=== PATIENT | female | born 1950 | race Caucasian/White ===

== ENCOUNTER 2017-02-26 14:59 | Outpatient (CLI) | payer MEDICARE | END 2017-02-26 15:00 | disposition home or self-care (01) | LOC: LABBT 14:59 | PROVIDERS: ATTEND Orthopaedic Surgery Sports Medicine | DX: R91.8 Other nonspecific abnormal finding of lung field (principal) ==

== ENCOUNTER 2017-03-01 07:43 | Day surgery (SDC) | payer MEDICARE ==
[2017-02-26 15:14] VITALS: BMI 18.0
[~2017-03-01 07:43] MED LIST: Lidocaine 1% (PF) 30 ML VIAL ONE
[2017-03-01] MEDS ORDERED: Fentanyl 100 MCG/2 ML VIAL ONE (09:31)
[2017-03-01] MEDS ORDERED: Midazolam HCl 2 mg/2 ml Vial ONE (09:31)
[2017-03-01 10:36] LABS: BF Reference Range Comment Note:
[2017-03-01 10:56] LABS: BF Color Colorless
[2017-03-01 10:57] LABS: BF WBC/Nonhematics Ct. - Manua 295 /cumm
[2017-03-01 11:52] LABS: Number Cells Counted-Fluids 100
--- NOTE | 2017-03-01 15:05 | OP ---
DATE OF SERVICE: 03/01/2017 SERVICE: Pulmonary Medicine. PROCEDURE: Fiberoptic bronchoscopy with: 1. Visual airway inspection. 2. Endobronchial brush of the right lower lobe. 3. Bronchoalveolar lavage at the right lower lobe. 4. Transbronchial biopsies of the right lower lobe. PREPROCEDURE DIAGNOSIS: Pulmonary infiltrate. POSTPROCEDURE DIAGNOSIS: Pulmonary infiltrate. PROCEDURE COOLER SERVICER: Kayode Robles M.D. MEDICATIONS: 1. Versed 3 mg IV push. 2. Fentanyl 75 mcg IV push. 3. Topical lidocaine 1% without epinephrine, total quantity 16 mL PREANESTHESIA ASSESSMENT: H and P had been performed. The patient's medications and allergies were reviewed. Informed consent was obtained after discussing risks, benefits, and rationale for perfo rming procedure as well as alternative options. DESCRIPTION OF PROCEDURE: A timeout was performed identifying the correct procedure and the patient with name and date of . Topical anesthesia with plot of the nose and posterior oropharynx. A diagnostic fiberoptic bronchoscope was introduced through the right naris. The vocal cords were vi sualized and 1% lidocaine was topically sprayed on the cords. The bronchoscope was advanced in the trachea where additional aliquots of lidocaine were applied. A tracheobronchial tree inspection was carried out with clear identification of the right upper lobe, right middle lobe, right lower lobe, left upper lobe, lingula, and left lower lobe. Anatomy was normal to the segmental level. Broncho alveolar lavage was obtained from the right lower lobe. Endobronchial brushings and transbronchial biopsies were obtained from the right lower lobe under fluoroscopic guidance. Hemostasis was verifi ed and the bronchoscope was subsequently removed from the patient. Post-procedure fluoroscopy did n ot demonstrate a pneumothorax. FINDINGS: 1. Vocal cords were normal in motility and appearance. 2. No endobronchial disease was identified. 3. Secretions were minimal, but thick and white. SPECIMENS OBTAINED: 1. BAL for cytology, cultures, and cell count. 2. Transbronchial biopsies for pathology. 3. Brushing for pathology. COMPLICATIONS: None. ESTIMATED BLOOD LOSS: 2 mL FLUOROSCOPY TIME: 1 minute 47 seconds. DISPOSITION: The patient will be discharged home with postprocedure instructions. They will return to the clinic as previously directed.
== END 2017-03-01 11:28 | disposition home or self-care (01) ==
LOC: SDC 07:43
PROVIDERS: ATTEND Internal Medicine
PROC: 0BBF8ZX Excision of Right Lower Lung Lobe, Via Natural or Artificial Opening Endoscopic, Diagnostic (ICD-10-PCS; principal; 2017-03-01)
PROC: 0BB68ZX Excision of Right Lower Lobe Bronchus, Via Natural or Artificial Opening Endoscopic, Diagnostic (ICD-10-PCS; 2017-03-01)
DX: D14.31 Benign neoplasm of right bronchus and lung (principal); I10 Essential (primary) hypertension; D86.0 Sarcoidosis of lung; Z79.82 Long term (current) use of aspirin; Z79.899 Other long term (current) drug therapy; Z87.891 Personal history of nicotine dependence
CPT/HCPCS: 85060; 87070; 87102; 87116; 87205; 87206; 88104; 88112; 88305; 88312; 88313; 89051; 99152; 99153; J2001; J2250; J3010; J7620

== ENCOUNTER 2017-11-11 12:22 | Outpatient (CLI) | payer MEDICARE, OTHER ==
--- NOTE | 2017-11-11 15:22 | CT ---
NONCONTRAST CT THORAX: Date: 11/11/17 HISTORY: Pulmonary infiltrate. 7 month follow-up examination. COMPARISON: Study obtained at [facility] on 02/26/17. FINDINGS: The previously described reticulonodular densities in the right lower lobe are again seen with tree-i n-bud type appearance. Conglomeration of the larger area of nodularity in the right lower lobe has im proved, but the reticulonodular densities do persist in the right lower lobe. Minimal reticulonodular densities seen in the right upper lobe have not significantly changed from the prior exam. No new re ticulonodular densities are seen within the lungs bilaterally. A small, approximately 4.0 mm, pulmonary nodule in the left lung apex is again seen. Although this no dule is not well appreciated on the axial images due to slice selection, this area of nodularity is s table on coronal images compared to the prior exam. Symmetric biapical pleural and parenchymal scarring is again seen. Calcified granuloma is seen in the left lower lobe. No new pulmonary nodule or mass is seen. There is a stable area of mild scarring in the right middle lobe laterally, as well as stable minimal scarring in the lingula. No pleural effusion is seen. There is limited evaluation of the vascular structures and mediastinum due to lack of intravenous con trast, but no definite enlarged lymph nodes are appreciated on this nonenhanced CT exam. Calcified left hilar lymph nodes are seen. Vascular calcifications are again seen in the abdominal ao rta and iliac arteries. No other interval change. IMPRESSION: 1. Persistent reticulonodular opacities within the right upper and right lower lobes with improvemen t in nodularity in the right lower lobe compared to the prior exam. These findings may be related to atypical infectious process or inflammatory process. 2. Stable mild scarring within the right middle lobe and lingula. 3. Stable tiny nodule left lung apex with stable pleural and parenchymal scarring in each lung apex. POS: JENELLE
== END 2017-11-11 12:23 | disposition home or self-care (01) ==
LOC: CT 12:22
PROVIDERS: ATTEND Internal Medicine
DX: R91.8 Other nonspecific abnormal finding of lung field (principal)
CPT/HCPCS: 71250

== ENCOUNTER 2022-01-22 16:16 | Outpatient (CLI) | payer MEDICARE | END 2022-01-22 16:17 | disposition home or self-care (01) | LOC: BICMAMMO 16:16 | PROVIDERS: ATTEND Internal Medicine | DX: R05.9 Cough, unspecified (principal) | CPT/HCPCS: 71046 ==

== ENCOUNTER 2022-02-01 12:17 | Outpatient (CLI) | payer MEDICARE | END 2022-02-01 12:18 | disposition home or self-care (01) | LOC: BICCT 12:17 | PROVIDERS: ATTEND Internal Medicine | DX: R91.8 Other nonspecific abnormal finding of lung field (principal); N63.0 Unspecified lump in unspecified breast; J98.4 Other disorders of lung | CPT/HCPCS: 71260; 76642; 77066; G0279 ==

== ENCOUNTER 2022-09-19 09:41 | Outpatient (CLI) | payer MEDICARE | END 2022-09-19 09:42 | disposition home or self-care (01) | LOC: CT 09:41 | PROVIDERS: ATTEND Internal Medicine Critical Care Medicine | DX: R91.8 Other nonspecific abnormal finding of lung field (principal) | CPT/HCPCS: 71250 ==

== ENCOUNTER 2025-03-11 18:19 | Inpatient (IN) | payer MEDICARE ==
[~2025-03-11 18:19] MED LIST changes: +Iopamidol-370 76% 500 ML MDV (1 ML CHARGE) ONE; -Lidocaine 1% (PF) 30 ML VIAL ONE
[2025-03-11 19:56] LABS: Bacteria/HPF None Seen HPF (None Seen); CAUTI Indications for Culture Alt mental st,lethar; Glucose, Urine (Dipstick) Normal (Negative); Leukocyte Negative Leu/uL (Negative); Protein, Urine (Dipstick) 10 mg/dL (Neg-Trace); RBC/HPF None Seen HPF (0-3); Specific Gravity, Urine 1.017 (1.002-1.036); WBC/HPF 0-3 HPF (0-3)
[2025-03-11 20:01] LABS: Urine Culture Reflex No No
[2025-03-11 23:15] LABS: #Basophils Less than 0.03 10x3/uL (0.0-0.2); #Eosinophils Less than 0.03 10x3/uL (0.0-0.7); #Monocytes 0.26 10x3/uL (0.11-0.59); #Neutrophils 2.27 10x3/uL (1.40-6.50); %Basophils 0.3 % (0.0-1.0); %Eosinophils 0.0 % (0.0-10.0); %Lymphocytes 13.0 % (21.0-51.0); %Monocytes 8.9 % (0.0-10.0); %Neutrophils 77.8 % (42.0-75.0); Hematocrit 45.5 % (36.0-47.0); Hemoglobin 14.7 g/dL (12.0-16.0); Mean Corpuscular Hemoglobin 31.1 pg (27.0-31.0); Mean Corpuscular Volume 96.4 fL (78.0-98.0); Platelet Count 174 10x3/uL (130-400); Red Blood Cell (RBC) Count 4.72 mill/uL (4.20-5.40); White Blood Cell (WBC) Count 2.92 10x3/uL (4.8-10.8)
[2025-03-11 23:58] LABS: ALT (SGPT) 19 U/L (Less than 34); AST (SGOT) 44 U/L (11-34); Albumin 3.6 g/dL (3.1-4.5); Alkaline Phosphatase 56 U/L (40-110); Anion Gap 18 mmol/L (10-20); BUN (Urea Nitrogen) 21 mg/dL (9.8-20.1); Bilirubin, Total 0.3 mg/dL (0.3-1.2); Calc. Creatinine Clearance 0 mL/min (70-130); Calcium 8.8 mg/dL (7.8-10.44); Carbon Dioxide 21 mmol/L (23-31); Chloride 102 mmol/L (98-107); Globulin 3.7 g/dL (2.4-3.5); Glucose 76 mg/dL (83-110); Lipase 75 U/L (8-78); Magnesium 1.9 mg/dL (1.6-2.6); Potassium 5.2 mmol/L (3.5-5.1); Sodium 136 mmol/L (136-145)
[2025-03-12] MEDS ORDERED: cefTRIAXone (ROCEPHIN) 1 GM VIAL ONE (03:00)
[2025-03-12] MEDS ORDERED: Azithromycin 500 MG VIAL ONE (03:00)
[2025-03-12] MEDS ORDERED: Ondansetron PF 4 MG/2 ML Vial IVP PRN (03:53)
[2025-03-12] MEDS ORDERED: Ondansetron PF 4 MG/2 ML Vial ONE (04:18)
[2025-03-12] MEDS: Acetaminophen 325 MG TAB PO PRN (04:53)
[2025-03-12 05:10] LABS: #Basophils Less than 0.03 10x3/uL (0.0-0.2); #Eosinophils Less than 0.03 10x3/uL (0.0-0.7); #Monocytes 0.35 10x3/uL (0.11-0.59); #Neutrophils 2.20 10x3/uL (1.40-6.50); %Basophils 0.3 % (0.0-1.0); %Eosinophils 0.3 % (0.0-10.0); %Lymphocytes 17.3 % (21.0-51.0); %Monocytes 11.2 % (0.0-10.0); %Neutrophils 70.6 % (42.0-75.0); Hematocrit 43.3 % (36.0-47.0); Hemoglobin 14.5 g/dL (12.0-16.0); Mean Corpuscular Hemoglobin 31.5 pg (27.0-31.0); Mean Corpuscular Volume 93.9 fL (78.0-98.0); Platelet Count 159 10x3/uL (130-400); Red Blood Cell (RBC) Count 4.61 mill/uL (4.20-5.40); White Blood Cell (WBC) Count 3.12 10x3/uL (4.8-10.8)
[2025-03-12 05:13] VITALS: BMI 17.0
[2025-03-12 05:19] LABS: Anion Gap 16 mmol/L (10-20); BUN (Urea Nitrogen) 18 mg/dL (9.8-20.1); CRP, High Sensitivity at Bryan 0.51 mg/dL (< or = 0.5); Calc. Creatinine Clearance 36 mL/min (70-130); Calcium 8.6 mg/dL (7.8-10.44); Carbon Dioxide 22 mmol/L (23-31); Chloride 104 mmol/L (98-107); Glucose 73 mg/dL (83-110); Magnesium 1.8 mg/dL (1.6-2.6); Potassium 4.5 mmol/L (3.5-5.1); Sodium 137 mmol/L (136-145)
[2025-03-12 08:31] LABS: Legionella Urinary Ag Negative (Negative); Strep pneumo Urine Ag NEGATIVE (NEGATIVE)
[2025-03-12] MEDS: Pantoprazole 40 MG VIAL IVP SCH (09:31)
[2025-03-12] MEDS: Enoxaparin 30 MG (0.3 mL) SYRINGE SC SCH (09:31)
[2025-03-13] MEDS: cefTRIAXone\\ROCEPHIN 1 GM in Sodium Chloride 0.9% 100 ML IVPB SCH (02:31)
[2025-03-13] MEDS: Azithromycin 500 MG in Sodium Chloride 0.9% 250 ML 250 ML IVPB SCH (02:32)
[2025-03-13 03:51] LABS: #Basophils Less than 0.03 10x3/uL (0.0-0.2); #Eosinophils 0.04 10x3/uL (0.0-0.7); #Monocytes 0.25 10x3/uL (0.11-0.59); #Neutrophils 1.48 10x3/uL (1.40-6.50); %Basophils 0.4 % (0.0-1.0); %Eosinophils 1.7 % (0.0-10.0); %Lymphocytes 24.2 % (21.0-51.0); %Monocytes 10.6 % (0.0-10.0); %Neutrophils 62.7 % (42.0-75.0); Hematocrit 38.9 % (36.0-47.0); Hemoglobin 12.8 g/dL (12.0-16.0); Mean Corpuscular Hemoglobin 31.9 pg (27.0-31.0); Mean Corpuscular Volume 97.0 fL (78.0-98.0); Platelet Count 134 10x3/uL (130-400); Red Blood Cell (RBC) Count 4.01 mill/uL (4.20-5.40); White Blood Cell (WBC) Count 2.36 10x3/uL (4.8-10.8)
[2025-03-13 04:13] LABS: Anion Gap 13 mmol/L (10-20); BUN (Urea Nitrogen) 10 mg/dL (9.8-20.1); Calc. Creatinine Clearance 36 mL/min (70-130); Calcium 8.0 mg/dL (7.8-10.44); Carbon Dioxide 24 mmol/L (23-31); Chloride 106 mmol/L (98-107); Glucose 85 mg/dL (83-110); Magnesium 1.7 mg/dL (1.6-2.6); Potassium 3.9 mmol/L (3.5-5.1); Sodium 139 mmol/L (136-145)
[2025-03-13] MEDS: Enoxaparin 40 MG (0.4 mL) SYRINGE SC SCH (08:53)
[2025-03-13 09:47] VITALS: BMI 17.0
[2025-03-14 06:35] LABS: #Basophils Less than 0.03 10x3/uL (0.0-0.2); #Eosinophils 0.04 10x3/uL (0.0-0.7); #Monocytes 0.23 10x3/uL (0.11-0.59); #Neutrophils 1.68 10x3/uL (1.40-6.50); %Basophils 0.4 % (0.0-1.0); %Eosinophils 1.6 % (0.0-10.0); %Lymphocytes 23.0 % (21.0-51.0); %Monocytes 9.0 % (0.0-10.0); %Neutrophils 65.6 % (42.0-75.0); Hematocrit 39.2 % (36.0-47.0); Hemoglobin 12.7 g/dL (12.0-16.0); Mean Corpuscular Hemoglobin 31.4 pg (27.0-31.0); Mean Corpuscular Volume 96.8 fL (78.0-98.0); Platelet Count 121 10x3/uL (130-400); Red Blood Cell (RBC) Count 4.05 mill/uL (4.20-5.40); White Blood Cell (WBC) Count 2.56 10x3/uL (4.8-10.8)
[2025-03-14 06:48] LABS: Anion Gap 11 mmol/L (10-20); BUN (Urea Nitrogen) 9 mg/dL (9.8-20.1); Calc. Creatinine Clearance 44 mL/min (70-130); Calcium 8.5 mg/dL (7.8-10.44); Carbon Dioxide 28 mmol/L (23-31); Chloride 105 mmol/L (98-107); Glucose 81 mg/dL (83-110); Potassium 4.0 mmol/L (3.5-5.1); Sodium 140 mmol/L (136-145)
[2025-03-16] MEDS ORDERED: Lidocaine 1% PF 5 ML VIAL ONE (10:44)
[2025-03-16] MEDS ORDERED: PROPOFOL 20 ML ONE (10:44)
[2025-03-17 12:25] VITALS: BP 117/68; TEMP 99
== END 2025-03-17 15:48 | DRG 177 ==
LOC: ERS 18:19 → T4-A 03-12 03:59
PROVIDERS: ADMIT Internal Medicine; ATTEND Internal Medicine
PROC: 3E03329 Introduction of Other Anti-infective into Peripheral Vein, Percutaneous Approach (ICD-10-PCS; 2025-03-13)
PROC: 0DB68ZX Excision of Stomach, Via Natural or Artificial Opening Endoscopic, Diagnostic (ICD-10-PCS; principal; 2025-03-16)
DX: U07.1 COVID-19 (principal); J12.82 Pneumonia due to coronavirus disease 2019; E87.5 Hyperkalemia; K29.70 Gastritis, unspecified, without bleeding; I49.3 Ventricular premature depolarization; E86.0 Dehydration; H54.7 Unspecified visual loss; R19.7 Diarrhea, unspecified; Z90.710 Acquired absence of both cervix and uterus; Z79.899 Other long term (current) drug therapy; Z98.890 Other specified postprocedural states
CPT/HCPCS: 36415; 36416; 51701; 71045; 71260; 74177; 80048; 80053; 81001; 83690; 83735; 83880; 84443; 84484; 85025; 86141; 87040; 87086; 87428; 87449; 87899; 88305; 88342; 93005; 96361; 96374; 96375; J0456; J0696; J1650; J2470; J2704; J7042; J7050; Q9967